=== PATIENT | male | born 1960 | race Caucasian/White ===

== ENCOUNTER → 2021-01-16 09:54 | Outpatient (CLI) | payer OTHER, SELFPAY ==
--- NOTE | 2021-01-16 09:57 | DI.US.S_ITS ---
PROCEDURE: US PERIPH VENOUS LOW EXTREM BI INDICATIONS: Cramping calf. TECHNIQUE: Real-time imaging, as well as color and pulse Doppler interrogation, were performed of the deep veins of both legs from the inguinal ligament to the popliteal fossa. COMPARISON: None. FINDINGS: Right: The common femoral, femoral and popliteal veins are normally compressible, and free of intraluminal thrombus. Color and pulse Doppler demonstrate normal phasic intravascular flow. There is normal augmentation response to distal compression maneuver. Left: The common femoral, femoral and popliteal veins are normally compressible, and free of intraluminal thrombus. Color and pulse Doppler demonstrate normal phasic intravascular flow. There is normal augmentation response to distal compression maneuver. IMPRESSION: Negative for deep venous thrombosis. Dictated by: Jean Pro M.D. on 01/16/2021 at 10:35 Approved by: Jean Pro M.D. on 01/16/2021 at 10:35
[2021-01-16 11:11] LABS: Add Manual Diff / Slide Review NO; Basophils Absolute Auto 0 /uL (0-100); Basophils Percent Auto 0.8 % (0-2); Eosinophils Absolute Auto 300 /uL (0-450); Eosinophils Percent Auto 4.5 % (2-4); Hematocrit 44.4 % (41-53); Hemoglobin 14.9 g/dL (13.5-17.5); Lymphocytes Absolute Auto 1900 /uL (1100-4500); Lymphocytes Percent Auto 32.5 % (25-40); Mean Corpuscular HGB Conc 33.6 % (30-36); Mean Corpuscular Hemoglobin 29.1 PG (26-34); Mean Corpuscular Volume 86.8 fL (80-100); Monocytes Absolute Auto 500 /uL (0-900); Monocytes Percent Auto 7.8 % (3-14); Neutrophils Absolute Auto 3200 /uL (1500-7000); Neutrophils Percent Auto 54.4 % (50-75); Platelet Count 190 X10^3/uL (150-400); Red Blood Cell Count 5.11 X10^6/uL (4.5-5.9); Red Cell Distribution Width 14.3 % (11.6-14.8); White Blood Cell Count 5.9 X10^3/uL (4.5-11.0)
[2021-01-16 11:39] LABS: Erythrocyte Sedimentation Rate 5 MM/HR (0-15)
[2021-01-16 11:50] LABS: Alanine Aminotransferase 29 IU/L (<50); Albumin Globulin Ratio 1.4 (1.0-2.8); Alkaline Phosphatase 75 U/L (38-126); Aspartate Aminotransferase 33 IU/L (17-59); BUN Creatinine Ratio 19.8 (6-22); Bilirubin Total 0.5 mg/dL (0.2-1.3); Blood Urea Nitrogen 16 mg/dL (9-20); C-Reactive Protein Quant 0.9 mg/dL (<1.0); Carbon Dioxide 23 mmol/L (22-32); Chloride 107 mmol/L (98-107); Cholesterol 174 mg/dL (140-199); Estimated Glomerular Filt Rate > 60.0 mL/min (>60); Globulin 2.9 g/dL (1.7-4.1); Glucose 95 mg/dL (80-110); HDL Cholesterol 38 mg/dL (40-60); HEMOLYSIS < 15 (0-50); LDL Cholesterol Calculated 107 mg/dL (<100); Sodium 137 mmol/L (137-145); Total Protein 6.9 g/dL (6.3-8.2); Triglycerides 146 mg/dL (35-150)
[2021-01-16 11:57] LABS: Rheumatoid Factor < 8.6 IU/mL (<12.0)
[2021-01-16 12:04] LABS: Free T3, Triiodothyronine Free 3.47 pg/mL (2.77-5.27); Free T4, Direct Thyroxine 0.85 ng/dL (0.78-2.19); Microalbumin Urine Random < 0.6 mg/dL (0-1.6)
[2021-01-16 12:17] LABS: Thyroid Stimulating Hormone 1.35 uIU/mL (0.47-4.68)
[2021-01-16 12:18] LABS: Prostate Specific Antigen 0.636 ng/mL (0.10-4.00)
[2021-01-19 16:49] LABS: ANA Screen, IFA Negative (.)
== END ==
PROVIDERS: PCP Nurse Practitioner; Referring Provider Nurse Practitioner; Visit Provider Nurse Practitioner
DX: R25.2 Cramp and spasm (principal); G56.92 Unspecified mononeuropathy of left upper limb; G57.92 Unspecified mononeuropathy of left lower limb; I44.7 Left bundle-branch block, unspecified; G51.9 Disorder of facial nerve, unspecified; Z00.00 Encounter for general adult medical examination without abnormal findings; Z79.899 Other long term (current) drug therapy; Z87.898 Personal history of other specified conditions; Z86.59 Personal history of other mental and behavioral disorders
CPT/HCPCS: 36415; 80053; 80061; 82043; 82570; 84153; 84439; 84443; 84481; 85025; 85651; 86038; 86140; 86430; 93970

== ENCOUNTER → 2021-02-25 11:07 | Outpatient (CLI) | payer OTHER, SELFPAY ==
[2021-02-25 11:59] LABS: Add Manual Diff / Slide Review NO; Basophils Absolute Auto 0 /uL (0-100); Basophils Percent Auto 0.5 % (0-2); Eosinophils Absolute Auto 200 /uL (0-450); Eosinophils Percent Auto 2.6 % (2-4); Hematocrit 41.7 % (41-53); Hemoglobin 14.1 g/dL (13.5-17.5); Lymphocytes Absolute Auto 1800 /uL (1100-4500); Lymphocytes Percent Auto 24.6 % (25-40); Mean Corpuscular HGB Conc 33.8 % (30-36); Mean Corpuscular Hemoglobin 29.3 PG (26-34); Mean Corpuscular Volume 86.6 fL (80-100); Monocytes Absolute Auto 600 /uL (0-900); Monocytes Percent Auto 8.9 % (3-14); Neutrophils Absolute Auto 4600 /uL (1500-7000); Neutrophils Percent Auto 63.4 % (50-75); Platelet Count 227 X10^3/uL (150-400); Red Blood Cell Count 4.82 X10^6/uL (4.5-5.9); Red Cell Distribution Width 13.6 % (11.6-14.8); White Blood Cell Count 7.2 X10^3/uL (4.5-11.0)
[2021-02-25 12:09] LABS: Erythrocyte Sedimentation Rate 17 MM/HR (0-15)
[2021-02-25 12:49] LABS: Alanine Aminotransferase 25 IU/L (<50); Albumin Globulin Ratio 1.2 (1.0-2.8); Alkaline Phosphatase 77 U/L (38-126); Aspartate Aminotransferase 34 IU/L (17-59); BUN Creatinine Ratio 20.2 (6-22); Bilirubin Total 0.6 mg/dL (0.2-1.3); Blood Urea Nitrogen 18 mg/dL (9-20); C-Reactive Protein Quant 2.6 mg/dL (<1.0); Calcium 8.9 mg/dL (8.4-10.2); Carbon Dioxide 28 mmol/L (22-32); Chloride 104 mmol/L (98-107); Estimated Glomerular Filt Rate > 60.0 mL/min (>60); Globulin 3.4 g/dL (1.7-4.1); Glucose 85 mg/dL (80-110); HEMOLYSIS < 15 (0-50); Magnesium 2.2 mg/dL (1.6-2.3); Potassium 4.3 mmol/L (3.4-5.1); Sodium 139 mmol/L (137-145); Total Protein 7.4 g/dL (6.3-8.2)
[2021-02-25 12:56] LABS: Rheumatoid Factor < 8.6 IU/mL (<12.0)
[2021-02-27 15:32] LABS: ANA Screen, IFA Negative (.)
== END ==
PROVIDERS: PCP Nurse Practitioner; Referring Provider Nurse Practitioner; Visit Provider Nurse Practitioner
DX: M79.609 Pain in unspecified limb (principal); R52 Pain, unspecified; G51.9 Disorder of facial nerve, unspecified; G56.92 Unspecified mononeuropathy of left upper limb; G57.92 Unspecified mononeuropathy of left lower limb; G62.9 Polyneuropathy, unspecified
CPT/HCPCS: 36415; 80053; 83735; 85025; 85651; 86038; 86140; 86430

== ENCOUNTER 2021-03-02 09:19 | Emergency (ER) | payer OTHER, SELFPAY ==
[2021-03-02 09:50] VITALS: BP 120/83; PULSE 73; RESP 18; TEMP 36.4; O2SAT 99; BMI 28.0
--- NOTE | 2021-03-02 09:58 | DI.US.S_ITS ---
PROCEDURE: US PERIPH VENOUS LOW EXTREM RT INDICATIONS: PAIN/EDEMA TECHNIQUE: Real-time imaging, as well as color and pulse Doppler interrogation, were performed of the lower extremity deep veins from the inguinal ligament to the popliteal fossa. COMPARISON: None. FINDINGS: The common femoral, femoral and popliteal veins are normally compressible, and free of intraluminal thrombus. Color and pulse Doppler demonstrate normal phasic intraluminal flow. There is normal augmentation response to distal compression maneuver. IMPRESSION: No DVT found. 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 Dictated by: George Meza M.D. on 03/02/2021 at 10:52 Approved by: George Meza M.D. on 03/02/2021 at 10:52
[2021-03-02 10:29] LABS: Erythrocyte Sedimentation Rate 28 MM/HR (0-15)
[2021-03-02 10:30] LABS: Alanine Aminotransferase 28 IU/L (<50); Albumin 4.2 g/dL (3.5-5.0); Albumin Globulin Ratio 1.2 (1.0-2.8); Alkaline Phosphatase 80 U/L (38-126); Aspartate Aminotransferase 33 IU/L (17-59); BUN Creatinine Ratio 25.3 (6-22); Bilirubin Total 0.4 mg/dL (0.2-1.3); Blood Urea Nitrogen 20 mg/dL (9-20); Calcium 9.1 mg/dL (8.4-10.2); Carbon Dioxide 22 mmol/L (22-32); Chloride 105 mmol/L (98-107); Estimated Glomerular Filt Rate > 60.0 mL/min (>60); Globulin 3.5 g/dL (1.7-4.1); Glucose 96 mg/dL (80-110); HEMOLYSIS < 15 (0-50); Lactate (Lactic Acid) 0.8 mmol/L (0.7-2.1); Lipase 153 U/L (23-300); Potassium 4.5 mmol/L (3.4-5.1); Sodium 136 mmol/L (137-145); Total Protein 7.7 g/dL (6.3-8.2)
[2021-03-02 10:32] LABS: C-Reactive Protein Quant 4.1 mg/dL (<1.0)
[2021-03-02 10:45] LABS: Procalcitonin 0.08 ng/mL (<0.5)
[2021-03-02 12:01] LABS: Add Manual Diff / Slide Review NO; Basophils Absolute Auto 100 /uL (0-100); Basophils Percent Auto 0.5 % (0-2); Eosinophils Absolute Auto 100 /uL (0-450); Eosinophils Percent Auto 1.1 % (2-4); Hematocrit 43.8 % (41-53); Hemoglobin 14.8 g/dL (13.5-17.5); Lymphocytes Absolute Auto 1900 /uL (1100-4500); Lymphocytes Percent Auto 18.5 % (25-40); Mean Corpuscular HGB Conc 33.8 % (30-36); Mean Corpuscular Hemoglobin 29.3 PG (26-34); Mean Corpuscular Volume 86.6 fL (80-100); Monocytes Absolute Auto 900 /uL (0-900); Monocytes Percent Auto 8.9 % (3-14); Neutrophils Absolute Auto 7300 /uL (1500-7000); Platelet Count 253 X10^3/uL (150-400); Red Blood Cell Count 5.05 X10^6/uL (4.5-5.9); Red Cell Distribution Width 13.5 % (11.6-14.8); White Blood Cell Count 10.3 X10^3/uL (4.5-11.0)
[2021-03-02 12:38] VITALS: BP 117/72; PULSE 67; O2SAT 98
[2021-03-02 13:00] VITALS: BP 114/73; PULSE 69; O2SAT 94
--- NOTE | 2021-03-02 13:20 | ED.EXTPRO ---
HPI - Extremity Problem General Chief complaint: Extremity Problem,Nontraumatic Stated complaint: right leg swelling, heat, pain 3wks Time Seen by Provider: 03/02/21 13:19 Source: patient Mode of arrival: Ambulatory Limitations: no limitations History of Present Illness HPI Narrative: This a 60-year-old male who comes emergency department with complaint of all over body aches and joint pain in his extremities for several weeks. Patient states that his torso and his head did not cause him any issues. He states he has increased pain with flexion. His joints and muscles feel stiff. He states it is very hard to get out of bed in the morning. He believes he had a fever of 100 or 101 couple days ago. He has not had any headache. No vision changes. No cough cold or congestive symptoms. No chest pain or shortness of breath. He has not had any vomiting. No major changes to his bowel movements. He states he has been urinating a little bit more frequently. Has had intermittent GI issues which have been attributed IBS but has never had a colonoscopy. He has had an EGD in the past. He also had some rashes on his torso in the past which have resolved but never had a clear cause. Patient has a history of left bundle branch block. He is on bisoprolol, he is on mirtazapine for sleep and slight depression as well as occasional gabapentin. Patient had knee surgery on the right lower extremity when he was in his 20s. He had a scraping but no other intervention. He notes that his right leg has seemed more swollen in general. He notes that all the joints in his leg seem uncomfortable. He has some pain behind his knee but not in the front of the knee. He has not noticed any skin changes. He has seen his primary care physician who is currently working him up for autoimmune issues and is attempting to get him established with rheumatology but there are no appointments available for the next 5-6 months. Related Data Home Medications Medication Instructions Recorded Confirmed eszopiclone 1 mg tablet See Rx Instructions PO BEDTIME PRN 01/14/21 02/25/21 tab gabapentin 600 mg tablet 600 mg PO BEDTIME tab 01/14/21 02/25/21 Previous Rx's Medication Instructions Recorded bisoprolol fumarate 5 mg tablet 10 mg PO DAILY #180 tab 01/14/21 mirtazapine 15 mg tablet 7.5 mg PO BEDTIME #45 tab 01/14/21 prednisone 20 mg tablet 20 mg PO DAILY #7 tab 03/02/21 Allergies Allergy/AdvReac Type Severity Reaction Status Date / Time No Known Drug Allergies Allergy Unverified 02/25/21 10:23 Review of Systems Review of Systems ROS Unobtainable: All systems reviewed & are unremarkable except as noted in HPI and below Patient History Medical History History of insomnia History of posttraumatic stress disorder (PTSD) LBBB (left bundle branch block) Social History Smoking Status: Never smoker Smoking Status: Never smoker Exam Narrative Exam Narrative: GENERAL: Alert and oriented x three, male in mild distress. HEENT: Head normocephalic, atraumatic, EOMI, pupils reactive, face symmetric, moist mucous membranes NECK: Supple, full range of motion CARDIOVASCULAR: Regular rate and rhythm without murmurs, rubs or gallops. RESPIRATORY: Breath sounds equal bilaterally, no wheezes rales or rhonchi. ABDOMEN: Soft, nontender. Normoactive bowel sounds all 4 quadrants. No guarding or rebound, rigidity, no mass : No CVA tenderness EXTREMITIES: Normal range of motion but patient has discomfort with full range of motion of all his extremity joints particularly in his hands and the distal interphalangeal joints, no clubbing. Patient has mild swelling right comparison the left lower extremity. No appreciable warmth on exam. Patient has some mild tenderness in the posterior/llateral knee but not of the joint itself. There is some fullness of the posterior knee. There is no ballotable effusion. Neurovascularly intact NEUROLOGICAL: Cranial nerves II through XII grossly intact. Moving all extremities SKIN: Warm, dry, no petechiae, no rashes or lesions, no Roy lesions. Initial Vital Signs Initial Vital Signs: Vital Signs Temperature 97.5 F L 03/02/21 09:50 Pulse Rate 73 03/02/21 09:50 Respiratory Rate 18 03/02/21 09:50 Blood Pressure 120/83 03/02/21 09:50 Pulse Oximetry 99 03/02/21 09:50 Course Orders Ordered: ED Orders 03/02/21 13:01 TSH w/ Reflex to FT4 Stat 03/02/21 13:04 Urinalysis and Microscopic Stat Vital Signs Vital signs: Vital Signs - 8 hr 03/02/21 12:38 03/02/21 13:00 03/02/21 13:30 Pulse Rate 67 69 70 Blood Pressure 117/72 114/73 133/81 Pulse Oximetry 98 94 95 MDM - Extremity (Nontraumatic) Lab Data Result diagrams: 03/02/21 10:05 03/02/21 10:05 Labs: Lab Results 03/02/21 03/02/21 03/02/21 Range/Units 10:05 10:05 10:05 WBC 10.3 (4.5-11.0) X10^3/uL RBC 5.05 (4.5-5.9) X10^6/uL Hgb 14.8 (13.5-17.5) g/dL Hct 43.8 (41-53) % MCV 86.6 (80-100) fL MCH 29.3 (26-34) PG MCHC 33.8 (30-36) % RDW 13.5 (11.6-14.8) % Plt Count 253 (150-400) X10^3/uL Neut % (Auto) 71.0 (50-75) % Lymph % (Auto) 18.5 L (25-40) % [place] % (Auto) 8.9 (3-14) % Eos % (Auto) 1.1 L (2-4) % Baso % (Auto) 0.5 (0-2) % Neut # (Auto) 7300 H (1070-2797) /uL Lymph # (Auto) 1900 (3991-3566) /uL [place] # (Auto) 900 (0-900) /uL Eos # (Auto) 100 (0-450) /uL Baso # (Auto) 100 (0-100) /uL ESR (0-15) MM/HR Sodium 136 L (137-145) mmol/L Potassium 4.5 (3.4-5.1) mmol/L Chloride 105 (98-107) mmol/L Carbon Dioxide 22 (22-32) mmol/L BUN 20 (9-20) mg/dL Creatinine 0.79 (0.66-1.25) mg/dL Estimated GFR > 60.0 (>60) mL/min BUN/Creatinine Ratio 25.3 H (6-22) Glucose 96 (80-110) mg/dL Lactate 0.8 (0.7-2.1) mmol/L Calcium 9.1 (8.4-10.2) mg/dL Total Bilirubin 0.4 (0.2-1.3) mg/dL AST 33 (17-59) IU/L ALT 28 (<50) IU/L Alkaline Phosphatase 80 (38-126) U/L C-Reactive Protein (<1.0) mg/dL Total Protein 7.7 (6.3-8.2) g/dL Albumin 4.2 (3.5-5.0) g/dL Globulin 3.5 (1.7-4.1) g/dL Albumin/Globulin Ratio 1.2 (1.0-2.8) Lipase 153 (23-300) U/L Procalcitonin 0.08 (<0.5) ng/mL TSH (0.47-4.68) uIU/mL Urine Color Urine Appearance Urine pH (4.5-8.0) Ur Specific [place] (1.000-1.035) Urine Protein (Negative) Urine Glucose (UA) (Negative) g/dL Urine Ketones (NEGATIVE) Urine Occult Blood (Negative) Urine Nitrate (Negative) Urine Bilirubin (NEGATIVE) Urine Urobilinogen (0.2) E.U./dL Ur Leukocyte Esterase (NEGATIVE) Urine RBC (0-5/HPF) Urine WBC (0-5/HPF) Urine Bacteria (None) Ur Culture Indicated? 03/02/21 03/02/21 03/02/21 Range/Units 10:05 10:05 13:01 WBC (4.5-11.0) X10^3/uL RBC (4.5-5.9) X10^6/uL Hgb (13.5-17.5) g/dL Hct (41-53) % MCV (80-100) fL MCH (26-34) PG MCHC (30-36) % RDW (11.6-14.8) % Plt Count (150-400) X10^3/uL Neut % (Auto) (50-75) % Lymph % (Auto) (25-40) % [place] % (Auto) (3-14) % Eos % (Auto) (2-4) % Baso % (Auto) (0-2) % Neut # (Auto) (9806-9453) /uL Lymph # (Auto) (3938-4902) /uL [place] # (Auto) (0-900) /uL Eos # (Auto) (0-450) /uL Baso # (Auto) (0-100) /uL ESR 28 H (0-15) MM/HR Sodium (137-145) mmol/L Potassium (3.4-5.1) mmol/L Chloride (98-107) mmol/L Carbon Dioxide (22-32) mmol/L BUN (9-20) mg/dL Creatinine (0.66-1.25) mg/dL Estimated GFR (>60) mL/min BUN/Creatinine Ratio (6-22) Glucose (80-110) mg/dL Lactate (0.7-2.1) mmol/L Calcium (8.4-10.2) mg/dL Total Bilirubin (0.2-1.3) mg/dL AST (17-59) IU/L ALT (<50) IU/L Alkaline Phosphatase (38-126) U/L C-Reactive Protein 4.1 H (<1.0) mg/dL Total Protein (6.3-8.2) g/dL Albumin (3.5-5.0) g/dL Globulin (1.7-4.1) g/dL Albumin/Globulin Ratio (1.0-2.8) Lipase (23-300) U/L Procalcitonin (<0.5) ng/mL TSH 1.12 (0.47-4.68) uIU/mL Urine Color Urine Appearance Urine pH (4.5-8.0) Ur Specific [place] (1.000-1.035) Urine Protein (Negative) Urine Glucose (UA) (Negative) g/dL Urine Ketones (NEGATIVE) Urine Occult Blood (Negative) Urine Nitrate (Negative) Urine Bilirubin (NEGATIVE) Urine Urobilinogen (0.2) E.U./dL Ur Leukocyte Esterase (NEGATIVE) Urine RBC (0-5/HPF) Urine WBC (0-5/HPF) Urine Bacteria (None) Ur Culture Indicated? 03/02/21 Range/Units 13:04 WBC (4.5-11.0) X10^3/uL RBC (4.5-5.9) X10^6/uL Hgb (13.5-17.5) g/dL Hct (41-53) % MCV (80-100) fL MCH (26-34) PG MCHC (30-36) % RDW (11.6-14.8) % Plt Count (150-400) X10^3/uL Neut % (Auto) (50-75) % Lymph % (Auto) (25-40) % [place] % (Auto) (3-14) % Eos % (Auto) (2-4) % Baso % (Auto) (0-2) % Neut # (Auto) (4260-9644) /uL Lymph # (Auto) (2467-1726) /uL [place] # (Auto) (0-900) /uL Eos # (Auto) (0-450) /uL Baso # (Auto) (0-100) /uL ESR (0-15) MM/HR Sodium (137-145) mmol/L Potassium (3.4-5.1) mmol/L Chloride (98-107) mmol/L Carbon Dioxide (22-32) mmol/L BUN (9-20) mg/dL Creatinine (0.66-1.25) mg/dL Estimated GFR (>60) mL/min BUN/Creatinine Ratio (6-22) Glucose (80-110) mg/dL Lactate (0.7-2.1) mmol/L Calcium (8.4-10.2) mg/dL Total Bilirubin (0.2-1.3) mg/dL AST (17-59) IU/L ALT (<50) IU/L Alkaline Phosphatase (38-126) U/L C-Reactive Protein (<1.0) mg/dL Total Protein (6.3-8.2) g/dL Albumin (3.5-5.0) g/dL Globulin (1.7-4.1) g/dL Albumin/Globulin Ratio (1.0-2.8) Lipase (23-300) U/L Procalcitonin (<0.5) ng/mL TSH (0.47-4.68) uIU/mL Urine Color Yellow Urine Appearance Clear Urine pH 6.5 (4.5-8.0) Ur Specific [place] <=1.005 (1.000-1.035) Urine Protein Negative (Negative) Urine Glucose (UA) Negative (Negative) g/dL Urine Ketones Negative (NEGATIVE) Urine Occult Blood Negative (Negative) Urine Nitrate Negative (Negative) Urine Bilirubin Negative (NEGATIVE) Urine Urobilinogen 0.2 (0.2) E.U./dL Ur Leukocyte Esterase Negative (NEGATIVE) Urine RBC None seen (0-5/HPF) Urine WBC None seen (0-5/HPF) Urine Bacteria None seen (None) Ur Culture Indicated? Cult not indicated Imaging Data US - DVT: Radiologist's Impression: [address] [id number] ReportSigned Patient: Bart Carter SMR#: [id number]: 1960cct:[id number]/Sex: 60 / MDate of Service: 03/02/21Loc: EDAccession Number: [id number] Procedure: US periph venous low extrem rt Ordering Provider: Nydia Espana D.O. PROCEDURE: US PERIPH VENOUS LOW EXTREM RT INDICATIONS: PAIN/EDEMA TECHNIQUE: Real-time imaging, as well as color and pulse Doppler interrogation, were performed of the lower extremity deep veins from the inguinal ligament to the popliteal fossa. COMPARISON: None. FINDINGS: The common femoral, femoral and popliteal veins are normally compressible, and free of intraluminal thrombus. Color and pulse Doppler demonstrate normal phasic intraluminal flow. There is normal augmentation response to distal compression maneuver. IMPRESSION: No DVT found. 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 Dictated by: George Meza M.D. on 03/02/2021 at 10:52 Approved by: George Meza M.D. on 03/02/2021 at 10:52 [facility] [place] Narrative Medical decision making narrative: This is a 60-year-old male who comes the emergency department with complaint generalized arthralgias. He has appreciated some increased swelling in his right lower extremity in general, he has had some increased pain kind of behind his knee on the lateral side. He thinks he has had some fevers once or twice. He was seen by his primary care and had multiple labs sent to evaluate for autoimmune diseases and is trying to be set up with Rheumatology but this may be 5 or 6 months. On examination patient does not have an obviously septic knee. He does have some fullness in the posterior knee an ultrasound shows Stephenson cyst. His labs are reassuring except for an elevated CRP and ESR, his procalcitonin is negative. With patient has polyarthralgia in multiple extremities my suspicion for septic joint is low based on today's exam. Discharge Plan Departure Patient Disposition: Home Clinical Impression: Polyarthralgia Instructions: DI for Arthralgia Activity Restrictions/Additional Instructions: Your current clinical situation and lab seem to suggest an autoimmune cause of your symptoms but blood cultures were sent today. Your exam today does not make me suspicious for septic arthritis of your joint. 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 Typically we do not intervene unless it has become very large and then orthopedic surgery will sometimes drain them. I would recommend NSAIDs such as ibuprofen up to 600 mg every 6 hours. It may be helpful to try a course of steroids to see if this improves your symptoms. Prescription was sent to [facility] in [place]. Please return for fevers, increasing redness, swelling or pain particularly of 1 joint, a peer having new chest pain, shortness of breath, lightheadedness or passing out, new skin changes or other new or concerning symptoms. Prescriptions: New prednisone 20 mg tablet 20 mg PO DAILY Qty: 7 RF: 0 No Action gabapentin 600 mg tablet 600 mg PO BEDTIME RF: 0 eszopiclone 1 mg tablet See Rx Instructions PO BEDTIME PRNRF: 0 mirtazapine 15 mg tablet 7.5 mg PO BEDTIME Qty: 45 RF: 3 bisoprolol fumarate 5 mg tablet 10 mg PO DAILY Qty: 180 RF: 3 Referrals: Tran Posada ARNP [Primary Care Provider] -
--- NOTE | 2021-03-02 13:29 | PC.NURSE ---
Pt states for awhile now he has been experiencing generalized body and joint aches along with an elevated c-reactive protein. Has been referred to a Rhumatologist but can not get an appointment until next year. Here today because his R leg became swollen, warm, and painful.
[2021-03-02 13:30] VITALS: BP 133/81; PULSE 70; O2SAT 95
[2021-03-02 13:39] LABS: TSH w/ Reflex to FT4 1.12 uIU/mL (0.47-4.68)
[2021-03-02 13:53] LABS: Bacteria Urine None Seen; RBC Urine None Seen (0-5/HPF); WBC Urine None Seen (0-5/HPF)
[2021-03-02 14:00] LABS: Appearance Urine UA CLEAR; Bilirubin Urine UA NEGATIVE (NEGATIVE); Color Urine UA YELLOW; Glucose Urine UA NEGATIVE (Negative); Ketones Urine UA NEGATIVE (NEGATIVE); Leukocyte Esterase Urine UA NEGATIVE (NEGATIVE); Nitrite Urine UA NEGATIVE (Negative); Occult Blood Urine UA NEGATIVE (Negative); Protein Urine UA NEGATIVE (Negative); Specific Gravity Urine UA <=1.005 (1.000-1.035); Urobilinogen Urine UA 0.2 E.U./dL (0.2); pH Urine UA 6.5 (4.5-8.0)
[2021-03-02 14:07] LABS: Culture Indicated Urine Cult Not Indicated
== END 2021-03-02 14:07 | disposition home or self-care (01) ==
PROVIDERS: Emergency Provider Emergency Medicine; PCP Nurse Practitioner
DX: M79.604 Pain in right leg (principal)
CPT/HCPCS: 36415; 80053; 81001; 83605; 83690; 84145; 84443; 85025; 85651; 86140; 87040; 93971; 99284

== ENCOUNTER → 2021-06-12 10:33 | Outpatient (CLI) | payer OTHER, SELFPAY ==
--- NOTE | 2021-06-12 10:37 | DI.RAD.S_ITS ---
PROCEDURE: XR CHEST 2V INDICATIONS: chest pain TECHNIQUE: 2 views of the chest were acquired. COMPARISON: None. FINDINGS: Surgical changes and devices: None. Lungs and pleura: Lungs are clear. No pleural effusions or pneumothorax. Mediastinum: Mediastinal contours are normal. Heart size is normal. Bones and chest wall: No suspicious bony abnormalities. Soft tissues appear unremarkable. IMPRESSION: No acute cardiopulmonary disease. Dictated by: Macey Otero M.D. on 06/12/2021 at 11:55 Approved by: Macey Otero M.D. on 06/12/2021 at 11:55
[2021-06-12 10:52] LABS: Add Manual Diff / Slide Review NO; Basophils Absolute Auto 0 /uL (0-100); Basophils Percent Auto 0.3 % (0-2); Eosinophils Absolute Auto 0 /uL (0-450); Eosinophils Percent Auto 0.2 % (2-4); Hematocrit 46.4 % (41-53); Hemoglobin 15.8 g/dL (13.5-17.5); Lymphocytes Absolute Auto 1200 /uL (1100-4500); Lymphocytes Percent Auto 11.7 % (25-40); Mean Corpuscular HGB Conc 34.2 % (30-36); Mean Corpuscular Hemoglobin 29.6 PG (26-34); Mean Corpuscular Volume 86.5 fL (80-100); Monocytes Absolute Auto 600 /uL (0-900); Monocytes Percent Auto 5.4 % (3-14); Neutrophils Absolute Auto 8500 /uL (1500-7000); Neutrophils Percent Auto 82.4 % (50-75); Platelet Count 197 X10^3/uL (150-400); Red Blood Cell Count 5.36 X10^6/uL (4.5-5.9); Red Cell Distribution Width 15.4 % (11.6-14.8); White Blood Cell Count 10.3 X10^3/uL (4.5-11.0)
[2021-06-12 12:13] LABS: Alanine Aminotransferase 30 IU/L (<50); Albumin 4.3 g/dL (3.5-5.0); Albumin Globulin Ratio 1.8 (1.0-2.8); Alkaline Phosphatase 67 U/L (38-126); Aspartate Aminotransferase 25 IU/L (17-59); BUN Creatinine Ratio 18.6 (6-22); Bilirubin Total 0.5 mg/dL (0.2-1.3); Blood Urea Nitrogen 19 mg/dL (9-20); Calcium 9.1 mg/dL (8.4-10.2); Carbon Dioxide 24 mmol/L (22-32); Chloride 102 mmol/L (98-107); Creatine Kinase 54 U/L (55-170); Estimated Glomerular Filt Rate > 60.0 mL/min (>60); Globulin 2.4 g/dL (1.7-4.1); Glucose 108 mg/dL (80-110); HEMOLYSIS < 15 (0-50); Potassium 4.3 mmol/L (3.4-5.1); Sodium 135 mmol/L (137-145); Total Protein 6.7 g/dL (6.3-8.2)
[2021-06-12 12:17] LABS: Troponin I < 0.012 ng/mL (0.01-0.034)
== END ==
PROVIDERS: PCP Nurse Practitioner; Referring Provider Nurse Practitioner; Visit Provider Nurse Practitioner
DX: R07.9 Chest pain, unspecified (principal)
CPT/HCPCS: 36415; 71046; 80053; 82550; 84484; 85025; 93005; 93010

== ENCOUNTER → 2021-08-26 11:48 | Outpatient (CLI) | payer OTHER, SELFPAY ==
[2021-08-26 13:19] LABS: C-Reactive Protein Quant 2.2 mg/dL (<1.0)
[2021-08-26 14:13] LABS: Erythrocyte Sedimentation Rate 22 MM/HR (0-15)
[2021-08-28 13:17] LABS: ANA Screen, IFA Negative (.)
[2021-08-29 17:02] LABS: Antimyeloperoxidase AB <9.0 U/mL (0.0-9.0); Antiproteinase 3 AB <3.5 U/mL (0.0-3.5); Atypical P-ANCA Titer <1:20 titer (Neg:<1:20); C-ANCA Titer <1:20 titer (Neg:<1:20); P-ANCA Titer <1:20 titer (Neg:<1:20)
== END ==
PROVIDERS: PCP Nurse Practitioner; Referring Provider Nurse Practitioner; Visit Provider Nurse Practitioner
DX: M35.9 Systemic involvement of connective tissue, unspecified (principal)
CPT/HCPCS: 36415; 83520; 85651; 86038; 86140; 86256

== ENCOUNTER → 2021-09-03 15:14 | Outpatient (CLI) | payer OTHER, SELFPAY ==
[2021-09-03 16:12] LABS: Add Manual Diff / Slide Review NO; Basophils Absolute Auto 100 /uL (0-100); Basophils Percent Auto 0.8 % (0-2); Eosinophils Absolute Auto 100 /uL (0-450); Eosinophils Percent Auto 1.4 % (2-4); Hemoglobin 13.5 g/dL (13.5-17.5); Lymphocytes Absolute Auto 1300 /uL (1100-4500); Lymphocytes Percent Auto 16.4 % (25-40); Mean Corpuscular HGB Conc 34.5 % (30-36); Mean Corpuscular Hemoglobin 29.9 PG (26-34); Mean Corpuscular Volume 86.5 fL (80-100); Monocytes Absolute Auto 900 /uL (0-900); Monocytes Percent Auto 10.5 % (3-14); Neutrophils Absolute Auto 5800 /uL (1500-7000); Neutrophils Percent Auto 70.9 % (50-75); Platelet Count 269 X10^3/uL (150-400); Red Cell Distribution Width 13.7 % (11.6-14.8); White Blood Cell Count 8.2 X10^3/uL (4.5-11.0)
[2021-09-03 16:37] LABS: Erythrocyte Sedimentation Rate 37 MM/HR (0-15)
[2021-09-03 18:05] LABS: Alanine Aminotransferase 28 IU/L (<50); Albumin 3.8 g/dL (3.5-5.0); Albumin Globulin Ratio 1.4 (1.0-2.8); Alkaline Phosphatase 68 U/L (38-126); Aspartate Aminotransferase 30 IU/L (17-59); Bilirubin Total 0.4 mg/dL (0.2-1.3); Bilirubin Unconjugated 0.4 mg/dL (0.0-1.1); C-Reactive Protein Quant 5.6 mg/dL (<1.0); Carbon Dioxide 28 mmol/L (22-32); Chloride 103 mmol/L (98-107); Globulin 2.7 g/dL (1.7-4.1); HEMOLYSIS < 15 (0-50); Potassium 4.3 mmol/L (3.4-5.1); Sodium 138 mmol/L (137-145); Total Protein 6.5 g/dL (6.3-8.2); Uric Acid 5.8 mg/dL (3.5-8.5)
[2021-09-03 18:40] LABS: Rheumatoid Factor < 8.6 IU/mL (<12.0)
[2021-09-04 04:44] LABS: Complement C3 176 mg/dL (82-167)
[2021-09-05 16:53] LABS: Angiotensin Converting Enzyme 57 U/L (14-82)
[2021-09-06 12:18] LABS: Aldolase 6.5 U/L (3.3-10.3)
[2021-09-07 12:36] LABS: Antimyeloperoxidase AB <9.0 U/mL (0.0-9.0); Antiproteinase 3 AB <3.5 U/mL (0.0-3.5); Atypical P-ANCA Titer <1:20 titer (Neg:<1:20); C-ANCA Titer <1:20 titer (Neg:<1:20); P-ANCA Titer <1:20 titer (Neg:<1:20)
[2021-09-07 19:55] LABS: CCP Antibodies IgG/IgA 12 units (0-19)
[2021-09-08 00:41] LABS: CK-BB 0 % (0); CK-MB 0 % (0-3); CK-MM 100 % (97-100); Macro Type 1 0 % (Not Observed); Macro Type 2 0 % (Not Observed)
[2021-09-08 01:07] LABS: Complement Total CH50 > 60 U/mL (>41)
[2021-09-15 13:37] LABS: HLA B27 Negative (.)
== END ==
PROVIDERS: PCP Nurse Practitioner; Referring Provider Nurse Practitioner; Visit Provider Nurse Practitioner
DX: G56.92 Unspecified mononeuropathy of left upper limb (principal); G57.92 Unspecified mononeuropathy of left lower limb; I44.7 Left bundle-branch block, unspecified; L98.9 Disorder of the skin and subcutaneous tissue, unspecified; M35.9 Systemic involvement of connective tissue, unspecified; M79.10 Myalgia, unspecified site; R11.0 Nausea; R19.7 Diarrhea, unspecified; R53.83 Other fatigue; G51.9 Disorder of facial nerve, unspecified; R53.1 Weakness
CPT/HCPCS: 36415; 80051; 80076; 81374; 82085; 82164; 82550; 82553; 83520; 84550; 85025; 85651; 86140; 86160; 86162; 86200; 86256; 86430

== ENCOUNTER → 2021-09-08 06:46 | Outpatient (CLI) | payer OTHER, SELFPAY ==
--- NOTE | 2021-09-08 06:49 | DI.MRI.S_ITS ---
PROCEDURE: MR HAND RT WO CON INDICATIONS: Worsening pain in right hand and wrist TECHNIQUE: Noncontrast coronal T1 spin echo and T2 fast spin echo with fat saturation, axial proton density fast spin echo and T2 fast spin echo with fat saturation, sagittal T1 spin echo and STIR through the hand and fingers. COMPARISON: None. FINDINGS: Image quality: Excellent. Bones: The bones are normally aligned. No acute trabecular bone injury or osteitis. Mild subchondral cystic changes are seen at the 1st interphalangeal joint. Tiny focus of cortical irregularity at the 2nd metacarpal head, which does not meet criteria for erosion and may be degenerative. Joint spaces are relatively preserved in the hand. Minimal degenerative spurring is seen at the 1st carpometacarpal joint and the 1st metacarpophalangeal joint. Soft tissues: Mild T2-hyperintense signal is seen diffusely within the intrinsic hand muscles. . The muscles are normal in bulk. There is also subcutaneous soft tissue edema in the wrist and hand, most prominent at the dorsal ulnar aspect of the hand. No intramuscular masses identified. A small amount of fluid is seen extending along the flexor tendons at the level of the metacarpals that may be related to the adjacent muscular edema and/or tenosynovitis. The visualized portions of the extensor tendons are grossly intact. An 8 x 3 by 8 mm ganglion cyst is seen at the volar aspect of the 3rd metacarpophalangeal joint. IMPRESSION: 1. Nonspecific muscular edema throughout the hand, which may be secondary to myositis versus less likely muscle strains or early denervation changes. Nonspecific soft tissue edema is also seen in the hand that is worst dorsally. 2. Small amount of fluid within the tendon sheaths of the flexor tendons throughout the hand at the level of the metacarpals, which may indicate tenosynovitis. 3. No acute osseous erosion or osteitis. No significant ligament injury or subluxation. 4. 0.8 cm ganglion cyst volar to the 3rd metacarpophalangeal joint. Dictated by: Adriano Lindsay M.D. on 09/08/2021 at 9:26 Approved by: Adriano Lindsay M.D. on 09/08/2021 at 9:43
--- NOTE | 2021-09-08 06:49 | DI.MRI.S_ITS ---
PROCEDURE: MR KNEE RT WO CON INDICATIONS: Worsening pain in knee TECHNIQUE: Noncontrast sagittal PD fast spin echo and T2 fast spin echo with fat saturation, sagittal 3-D FLASH with fat saturation; coronal T1 spin echo and PD fast spin echo with fat saturation, and axial PD fast spin echo with fat saturation through the knee. COMPARISON: None. FINDINGS: Image quality: Excellent. Menisci: There is a horizontal oblique tear of the body and posterior horn of the medial meniscus extending to the mid to inner third of the tibial articular surface. Additionally, there is shallow radial oriented tear at the body of the medial meniscus that does not extend through the peripheral rim of meniscal tissue. There is no significant meniscal extrusion. The lateral meniscus is intact. Cruciate ligaments: The anterior and posterior cruciate ligaments appear intact. Medial structures: The medial collateral ligament appears intact. The semimembranosus tendon insertions and meniscocapsular junction appear intact. Visualized portions of the pes anserinus tendons appear normal. No abnormal bursal fluid. Lateral structures: The lateral collateral ligament, long and short heads of the biceps femoris tendon appear intact. The popliteus tendon appears intact. No signs of posterolateral corner injury. Iliotibial band appears normal. Anterior structures: The quadriceps and patellar tendons appear intact. Patellar alignment is normal. No femoral trochlear dysplasia or ventral trochlear prominence. No edema in the infrapatellar fat pad. Bones and cartilage: No bone marrow contusions or fractures. The cartilage of the medial and lateral femorotibial compartments, as well as the patellofemoral compartment, appears normal in thickness for age without a focal high-grade defect. Joint space: There is a moderate joint effusion. A small medial popliteal cyst is seen with mild surrounding edema that may indicate prior cyst rupture. Trace fluid is seen tracking along the popliteus tendon sheath. There is a small amount of subcutaneous pre patellar and pretibial soft tissue edema. Nonspecific soft tissue edema is also seen within the popliteus muscle and the included anterior tibialis muscle and also likely subtly within the proximal gastrocnemius muscle. IMPRESSION: 1. Complex tearing of the medial meniscus with a horizontal oblique component involving the posterior horn and body and a shallow radial component at the meniscal body. 2. Intact cruciate and collateral ligaments. No acute trabecular bone injury. No focal osseous erosion. 3. Moderate joint effusion. No significant synovial hypertrophy is seen. 4. Small medial popliteal cyst with surrounding edema that may indicate prior cyst rupture. 5. Mild soft tissue edema is seen within the visualized portions of the popliteus and anterior tibialis muscles and likely within the proximal gastrocnemius muscle, which is nonspecific but may be related to myositis or muscle strain. Nonspecific subcutaneous soft tissue edema is also seen in the prepatellar and pretibial soft tissues. Dictated by: Adriano Lindsay M.D. on 09/08/2021 at 9:07 Approved by: Adriano Lindsay M.D. on 09/08/2021 at 9:21
== END ==
PROVIDERS: PCP Nurse Practitioner; Referring Provider Nurse Practitioner; Visit Provider Nurse Practitioner
DX: S83.231A Complex tear of medial meniscus, current injury, right knee, initial encounter (principal); M25.461 Effusion, right knee; M71.21 Synovial cyst of popliteal space [Baker], right knee; M79.89 Other specified soft tissue disorders; M67.441 Ganglion, right hand; R60.0 Localized edema; M79.641 Pain in right hand; M25.561 Pain in right knee; M35.9 Systemic involvement of connective tissue, unspecified
CPT/HCPCS: 73218; 73721

== ENCOUNTER → 2021-12-18 11:24 | Outpatient (CLI) | payer OTHER, SELFPAY ==
--- NOTE | 2021-12-18 11:26 | DI.RAD.S_ITS ---
PROCEDURE: XR CHEST 2V INDICATIONS: cough TECHNIQUE: 2 views of the chest were acquired. COMPARISON: [facility], CR, XR CHEST 2V, 06/12/2021, 12:03. FINDINGS: Surgical changes and devices: Cholecystectomy clips. Lungs and pleura: Lungs are clear. No pleural effusions or pneumothorax. Mediastinum: Mediastinal contours are normal. Heart size is normal. Bones and chest wall: No suspicious bony abnormalities. Soft tissues appear unremarkable. IMPRESSION: No acute cardiopulmonary abnormality. Dictated by: Yemi Tomas M.D. on 12/18/2021 at 11:50 Approved by: Yemi Tomas M.D. on 12/18/2021 at 11:52
== END ==
PROVIDERS: PCP Nurse Practitioner; Referring Provider Nurse Practitioner Family; Visit Provider Nurse Practitioner Family
DX: R05.9 Cough, unspecified (principal)
CPT/HCPCS: 71046

== ENCOUNTER → 2022-01-22 11:36 | Outpatient (CLI) | payer OTHER, SELFPAY ==
[2022-01-22 12:46] LABS: Hemoglobin A1C% w Est Avg Glu 5.8 % (4.0-6.0)
== END ==
PROVIDERS: PCP Nurse Practitioner; Referring Provider Nurse Practitioner; Visit Provider Nurse Practitioner
DX: Z79.899 Other long term (current) drug therapy (principal); Z79.52 Long term (current) use of systemic steroids
CPT/HCPCS: 36415; 83036

== ENCOUNTER → 2022-10-15 12:00 | Outpatient (CLI) | payer OTHER, SELFPAY ==
--- NOTE | 2022-10-15 12:02 | DI.CT.S_ITS ---
PROCEDURE: CT CHEST ABDOMEN W CON INDICATIONS: chest and abdominal pain TECHNIQUE: After the administration of intravenous contrast, 5 mm thick sections acquired from the lung apices to the iliac crests. 5 mm coronal and sagittal reformats were performed, with additional 7 mm coronal MIP reformats through the lungs. For radiation dose reduction, the following was used: automated exposure control, adjustment of mA and/or kV according to patient size. COMPARISON: [facility], CR, XR CHEST 2V, 06/12/2021, 12:03. FINDINGS: Image quality: Excellent. CHEST: Lungs and pleura: No acute airspace opacities. There is minimal linear scarring at each lung base. No pleural effusions or pneumothorax. Central and peripheral airways appear patent and normal in caliber. Mediastinum: Heart size is normal. No pericardial effusion. No mediastinal or hilar adenopathy by size criteria. Thoracic aorta and central pulmonary arteries are normal in size. Esophagus is normal in caliber. No hiatal hernia. Chest wall: No axillary or supraclavicular adenopathy by size criteria. Thyroid gland appears normal where well seen . ABDOMEN: Solid organs: Liver is normal in size and enhancement. Gallbladder has been previously resected . Biliary system is non dilated. Pancreas enhances normally. Spleen is normal in size and enhancement. No adrenal nodules. Kidneys demonstrate normal size and enhancement, without hydronephrosis. Peritoneum and bowel: Bowel loops demonstrate normal wall thickness and caliber. No free fluid or air. Nodes and vessels: No retroperitoneal or mesenteric adenopathy by size criteria. Aorta and inferior vena cava are normal in size. Bones: No suspicious bony lesions. No vertebral body compression fractures. Miscellaneous: No ventral hernias. IMPRESSION: Prior cholecystectomy. Source of current sensation of pressure in the lower left chest and upper abdomen is not found. Dictated by: George Meza M.D. on 10/15/2022 at 15:43 Approved by: George Meza M.D. on 10/15/2022 at 15:44
[2022-10-15 12:28] LABS: BUN Creatinine Ratio 18.2 (6-22); Blood Urea Nitrogen 16 mg/dL (9-20); Calcium 8.6 mg/dL (8.4-10.2); Carbon Dioxide 26 mmol/L (22-32); Chloride 103 mmol/L (98-107); Estimated Glomerular Filt Rate > 60 mL/min (>60); Glucose 85 mg/dL (80-110); HEMOLYSIS < 15 (0-50); Potassium 4.1 mmol/L (3.4-5.1); Sodium 137 mmol/L (137-145)
== END ==
PROVIDERS: PCP Nurse Practitioner; Referring Provider Nurse Practitioner; Visit Provider Nurse Practitioner
DX: R10.13 Epigastric pain (principal); R07.9 Chest pain, unspecified; K44.9 Diaphragmatic hernia without obstruction or gangrene; I44.7 Left bundle-branch block, unspecified; M35.9 Systemic involvement of connective tissue, unspecified; Z90.49 Acquired absence of other specified parts of digestive tract
CPT/HCPCS: 71260; 74160; 80048; Q9967

== ENCOUNTER → 2023-05-27 11:56 | Outpatient (CLI) | payer OTHER, SELFPAY | PROVIDERS: PCP Nurse Practitioner; Referring Provider Internal Medicine Cardiovascular Disease; Visit Provider Internal Medicine Cardiovascular Disease | DX: R06.02 Shortness of breath (principal); J98.8 Other specified respiratory disorders | CPT/HCPCS: 94060; 94726; 94729 ==

== ENCOUNTER → 2023-05-27 14:56 | Outpatient (CLI) | payer OTHER, SELFPAY ==
--- NOTE | 2023-05-27 | DI.ECHO.S_ITS ---
[facility]---------+ [facility] +---------+ : : [address] : : : : [id number] : : : : Phone: [phone]---------+ Echocardiogram Report + + :Name: KATERYNA NORRIS Study Date: 05/27/2023 Height: 72 in : [id number] ReadingLocation: Weight: 204 lb : : Gender: Male BSA: 2.1 m2 : :: 1960 Age: 62 yrs BP: 117/67 mmHg: :Reason For Study: LBBB : : Performed By: Zuleima Haywood : :Referring: BRITTANY PACHECO : + + Interpretation Summary The left ventricle is normal in size and wall thickness. The left ventricular ejection fraction is normal. Left ventricular ejection fraction is estimated to be 55 +/- 5%. There has been no significant change in LV EF since the previous exam. The right ventricle is normal in size and function. There is mild tricuspid regurgitation. Compared to the prior echo exam, there has been no change in TR severity. The right ventricular systolic pressure is estimated to be at least 25 mmHg based on an estimated right atrial pressure of 3 mm Hg. Procedure: A two-dimensional transthoracic echocardiogram with color flow and Doppler was performed. The study quality was technically adequate. Comparison is made with the echocardiogram of 09/25/2021. The patient was in normal sinus rhythm during the exam. The patient had a bundle branch block rhythm during the exam. Left Ventricle: The left ventricle is normal in size and wall thickness. There is no thrombus. The left ventricular ejection fraction is normal. Left ventricular ejection fraction is estimated to be 55 +/- 5%. There has been no significant change since the previous exam. Septal motion is consistent with conduction abnormality. Diastolic parameters suggest a relaxation abnormality of the left ventricle, consistent with probable normal filling pressures. Right Ventricle: The right ventricle is normal in size and function. Atria: The left atrial size is normal. There has been no significant change since the previous study. The right atrium is mildly dilated. There is no Doppler evidence for an interatrial shunt. Mitral Valve: The mitral valve is normal in structure and function. There is trace mitral regurgitation. Aortic Valve: The aortic valve is normal in structure and function. The aortic valve is trileaflet. There is no aortic valve stenosis. No aortic regurgitation is present. Tricuspid Valve: The tricuspid valve is normal in structure and function. The right ventricular systolic pressure is estimated to be at least 25 mmHg based on an estimated right atrial pressure of 3 mm Hg. There is mild tricuspid regurgitation. Compared to the prior echo exam, there has been no change in TR severity. Pulmonic Valve: The pulmonic valve is not well seen, but is grossly normal. There is a trace or physiologic amount of pulmonic regurgitation. Great Vessels: The aortic root is normal size. The ascending aorta is normal in size. The aortic arch is normal in size. The pulmonary artery is normal size. The IVC is of normal diameter and collapses greater than 50% with a sniff. This suggests a low right atrial pressure of 3 mm Hg. Pericardium/ Pleura There is no pericardial effusion. There is no pleural effusion. MMode/2D Measurements & Calculations LVIDd: 4.7 cm LVOT diam: 2.4 cm LVIDs: 3.1 cm Ao root diam: 3.9 cm FS: 34.9 % asc Aorta Diam: 3.4 cm IVSd: 0.84 cm Ao Arch Diam (Prox Trans): 2.8 cm LVPWd: 0.84 cm LV french. diameter/BSA (cm/m^2): 2.2 LV sys. diameter/BSA (cm/m^2): 1.4 LA A2 area: 18.2 cm2 RA long axis: 4.9 cm LA A4 area: 16.5 cm2 RA area: 20.7 cm2 LA length (vol): 5.0 cm RA vol: 73.9 ml LA vol: 51.4 ml RA : 34.4 ml/m2 LA vol index: 23.9 ml/m2 IVC diam: 1.5 cm RVD1 (basal): 4.8 cm TAPSE: 2.1 cm Doppler Measurements & Calculations Ao V2 max: 102.8 cm/sec LVOT Max Rodriguez: 86.2 cm/sec Ao V2 mean: 73.5 cm/sec LV V1 max P.0 mmHg Ao max P.2 mmHg LV V1 VTI: 15.4 cm Ao mean P.4 mmHg JOSÉ MIGUEL(I,D): 4.7 cm2 Ao V2 VTI: 15.1 cm JOSÉ MIGUEL(V,D): 3.8 cm2 sev ratio: 1.0 JOSÉ MIGUEL indexed to BSA (cm^2/m^2): 2.2 MV E max rodriguez: 38.0 cm/sec TR max rodriguez: 235.0 cm/sec MV A max rodriguez: 56.3 cm/sec TR max P.1 mmHg MV E/A: 0.67 Med Peak E' Rodriguez: 4.6 cm/sec E/E' med: 8.3 Lat Peak E' Rodriguez: 6.3 cm/sec E/E' lat: 6.0 E/e' average: 7.2 MV P1/2t: 93.5 msec MV P1/2t max rodriguez: 38.4 cm/sec SV(LVOT): 70.4 ml MVA(P1/2t): 2.4 cm2 Reading Physician:05:39 PM
== END ==
PROVIDERS: PCP Nurse Practitioner; Referring Provider Internal Medicine Cardiovascular Disease; Visit Provider Internal Medicine Cardiovascular Disease
DX: I07.1 Rheumatic tricuspid insufficiency (principal); I44.7 Left bundle-branch block, unspecified; R07.89 Other chest pain; I42.8 Other cardiomyopathies; R06.02 Shortness of breath; J98.8 Other specified respiratory disorders
CPT/HCPCS: 93306; 94060; 94726; 94729

== ENCOUNTER → 2023-08-19 08:59 | Outpatient (CLI) | payer OTHER, SELFPAY ==
[2023-08-19 10:31] LABS: Cholesterol 168 mg/dL (140-199); HDL Cholesterol 32 mg/dL (40-60); LDL Cholesterol Calculated 92 mg/dL (<100); Triglycerides 221 mg/dL (35-150)
[2023-08-19 10:42] LABS: NT-proBNP (BNP-Adult 18+) < 20 pg/mL (<125)
== END ==
PROVIDERS: PCP Nurse Practitioner; Referring Provider Internal Medicine Cardiovascular Disease; Visit Provider Internal Medicine Cardiovascular Disease
DX: R06.02 Shortness of breath (principal); E78.5 Hyperlipidemia, unspecified
CPT/HCPCS: 36415; 80061; 83880

== ENCOUNTER → 2023-12-16 08:59 | Outpatient (CLI) | payer OTHER, SELFPAY ==
[2023-12-16 10:19] LABS: Add Manual Diff / Slide Review NO; Basophils Absolute Auto 0 /uL (0-100); Basophils Percent Auto 0.6 % (0-2); Eosinophils Absolute Auto 100 /uL (0-450); Eosinophils Percent Auto 1.6 % (2-4); Hematocrit 44.9 % (41-53); Hemoglobin 15.2 g/dL (13.5-17.5); Lymphocytes Absolute Auto 1800 /uL (1100-4500); Lymphocytes Percent Auto 29.9 % (25-40); Mean Corpuscular HGB Conc 33.9 % (30-36); Mean Corpuscular Hemoglobin 29.6 PG (26-34); Mean Corpuscular Volume 87.3 fL (80-100); Monocytes Absolute Auto 400 /uL (0-900); Neutrophils Absolute Auto 3700 /uL (1500-7000); Neutrophils Percent Auto 60.9 % (50-75); Platelet Count 183 X10^3/uL (150-400); Red Blood Cell Count 5.14 X10^6/uL (4.5-5.9); Red Cell Distribution Width 14.2 % (11.6-14.8); White Blood Cell Count 6.1 X10^3/uL (4.5-11.0)
[2023-12-16 14:22] LABS: Hemoglobin A1C% w Est Avg Glu 5.5 % (4.0-6.0)
[2023-12-16 16:00] LABS: Alanine Aminotransferase 23 IU/L (<50); Albumin 4.4 g/dL (3.5-5.0); Albumin Globulin Ratio 1.8 (1.0-2.8); Alkaline Phosphatase 83 U/L (38-126); Aspartate Aminotransferase 33 IU/L (17-59); Bilirubin Total 0.6 mg/dL (0.2-1.3); Blood Urea Nitrogen 18 mg/dL (9-20); Calcium 8.6 mg/dL (8.4-10.2); Carbon Dioxide 23 mmol/L (22-32); Chloride 107 mmol/L (98-107); Cholesterol 174 mg/dL (140-199); Estimated Glomerular Filt Rate > 60 mL/min (>60); Globulin 2.5 g/dL (1.7-4.1); Glucose 88 mg/dL (80-110); HDL Cholesterol 39 mg/dL (40-60); HEMOLYSIS < 15 (0-50); LDL Cholesterol Calculated 93 mg/dL (<100); Sodium 138 mmol/L (137-145); Total Protein 6.9 g/dL (6.3-8.2); Triglycerides 209 mg/dL (35-150)
[2023-12-16 16:15] LABS: Thyroid Stimulating Hormone 1.49 uIU/mL (0.47-4.68)
[2023-12-16 16:30] LABS: Microalbumin Urine Random < 0.6 mg/dL (0-1.6)
[2023-12-16 17:20] LABS: Free T3, Triiodothyronine Free 5.69 pg/mL (2.77-5.27); Free T4, Direct Thyroxine 0.86 ng/dL (0.78-2.19)
[2023-12-23 16:36] LABS: Percent Free Testosterone 2.13 % (1.50-4.20); Testosterone Free 7.68 ng/dL (5.00-21.00); Testosterone Total 360.7 ng/dL (264.0-916.0)
== END ==
PROVIDERS: PCP Nurse Practitioner; Referring Provider Nurse Practitioner; Visit Provider Nurse Practitioner
DX: Z00.00 Encounter for general adult medical examination without abnormal findings (principal)
CPT/HCPCS: 36415; 80053; 80061; 82043; 82570; 83036; 84402; 84403; 84439; 84443; 84481; 85025

== ENCOUNTER → 2024-01-10 08:11 | Outpatient (CLI) | payer OTHER, SELFPAY ==
--- NOTE | 2024-01-10 08:13 | DI.RAD.S_ITS ---
PROCEDURE: XR LUMBAR SPINE 6V W BENDING INDICATIONS: lumbar pain TECHNIQUE: Seven views of the lumbar spine acquired, including flexion and extension views. COMPARISON: None. FINDINGS: Bones: 5 nonrib-bearing vertebrae are present. There is normal bony alignment. No vertebral body compression fractures. No suspicious bony lesions. Multilevel marginal osteophytes. Moderate disc height loss at L5-S1 and L1-2. Mild disc height loss at remaining levels. Facet arthrosis of L4 through S1. Soft tissues: Overlying bowel gas pattern is normal. No suspicious soft tissue calcifications. Cholecystectomy clips Flexion/extension: There is normal range of motion, with preserved normal alignment. IMPRESSION: Mild to moderate, multilevel degenerative disc disease and lower lumbar facet arthrosis. No abnormal motion with flexion or extension. Dictated by: Ata Wilson M.D. on 01/10/2024 at 9:13 Approved by: Ata Wilson M.D. on 01/10/2024 at 9:14
[2024-01-10 11:04] LABS: Prostate Specific Antigen 1.11 ng/mL (0.10-4.00)
[2024-01-11 23:08] LABS: Thyroid Peroxidase Antibodies 17 IU/mL (0-34)
== END ==
PROVIDERS: PCP Nurse Practitioner; Referring Provider Nurse Practitioner; Visit Provider Nurse Practitioner
DX: M51.36 Other intervertebral disc degeneration, lumbar region (principal); M51.37 Other intervertebral disc degeneration, lumbosacral region; M47.816 Spondylosis without myelopathy or radiculopathy, lumbar region; M47.817 Spondylosis without myelopathy or radiculopathy, lumbosacral region; M54.50 Low back pain, unspecified; Z00.00 Encounter for general adult medical examination without abnormal findings; F32.9 Major depressive disorder, single episode, unspecified; F41.9 Anxiety disorder, unspecified; R51.9 Headache, unspecified; D89.89 Other specified disorders involving the immune mechanism, not elsewhere classified; E06.3 Autoimmune thyroiditis; G89.29 Other chronic pain
CPT/HCPCS: 36415; 72114; 84153; 86376

== ENCOUNTER → 2025-06-26 15:00 | Outpatient (CLI) | payer OTHER, SELFPAY ==
--- NOTE | 2025-06-26 15:01 | DI.US.S_ITS ---
PROCEDURE: US SCROTUM INDICATIONS: right testicular pain TECHNIQUE: Real-time scanning was performed of the scrotum and testicles, with image documentation. Color and pulse Doppler interrogation was performed of both testicles. COMPARISON: None. FINDINGS: Right: Testicle is normal in size, and homogenous in echotexture. Epididymis is normal in overall size and morphology. No hydrocele. Varicoceles present. Overlying scrotal skin is normal in thickness. Left: Testicle is normal in size, and homogeneous in echotexture. Epididymis is normal in overall size and morphology. No hydrocele or varicoceles. Overlying scrotal skin is normal in thickness. Left epididymal 3 mm cyst. Doppler: Color and pulse Doppler demonstrate normal and symmetric arterial flow in both testicles. IMPRESSION: Right varicoceles corresponding to area of clinical concern. Please note isolated right varicocele can sometimes be associated with an upstream pelvic or abdominal obstructing lesion Dictated by: Kavon Saha M.D. on 06/26/2025 at 15:38 Approved by: Kavon Saha M.D. on 06/26/2025 at 15:40
[2025-06-26 17:19] LABS: Urine N gonorrhoeae NOT DETECTED
[2025-06-26 17:24] LABS: Urine Chlamydia NOT DETECTED
== END ==
PROVIDERS: PCP Nurse Practitioner Family; Referring Provider Physician Assistant; Visit Provider Physician Assistant
DX: I86.1 Scrotal varices (principal); N50.811 Right testicular pain
CPT/HCPCS: 76870; 87491; 87591; 93975

== ENCOUNTER → 2025-07-05 08:32 | Outpatient (CLI) | payer OTHER, SELFPAY ==
--- NOTE | 2025-07-05 08:34 | DI.CT.S_ITS ---
PROCEDURE: CT ABDOMEN PELVIS W CON INDICATIONS: sharp groin/testicle pain TECHNIQUE: After the administration of intravenous contrast, axial sections acquired from the lung bases to the pubic symphysis. Coronal and sagittal reformats were performed. For radiation dose reduction, the following was used: automated exposure control, adjustment of mA and/or kV according to patient size. COMPARISON: [facility], CT, CT CHEST ABDOMEN W CON, 10/15/2022, 14:02. [facility], US, US SCROTUM, 06/26/2025, 15:12. FINDINGS: Image quality: Diagnostic. Lower Chest: No significant findings. ABDOMEN: Liver: No solid mass. Mild hepatic steatosis. Gallbladder: Surgically absent. Biliary ducts: Appropriate biliary tree caliber post cholecystectomy. Pancreas: Normal size and morphology without visible ductal dilatation or inflammation. Spleen: Size is within normal limits. Adrenal Glands: No adrenal nodules. Kidneys and Ureters: Symmetric enhancement. No nephrolithiasis or hydronephrosis. No visible mass or cyst requiring follow up. No hydroureter. Stomach and Bowel: Stomach and small bowel loops are normal caliber. Normal appendix. Diverticulosis throughout the descending and sigmoid colon. The remainder of the colon is unremarkable without focal wall thickening or surrounding inflammation. Peritoneum: No free fluid, fluid collections, free air, or significant intraperitoneal fat stranding. Ventral Wall: No significant ventral hernia. Abdominal Nodes: No retroperitoneal or mesenteric adenopathy by size criteria. Vessels: The right gonadal vein is well seen and normal caliber. No adjacent mass or inflammation. The abdominal aorta, IVC, and portal vein are of normal caliber. PELVIS: Pelvic Organs: Minimal prostatomegaly. No suspicious pelvic mass. Bladder: No stones or wall thickening. Pelvic Nodes: No enlarged lymph nodes. Miscellaneous: No inguinal hernias are seen. Pelvic vasculature appears symmetric and normal size. No varicosities are seen. Bones: No aggressive osseous abnormality. Degenerative disc change at L5-S1. IMPRESSION: No evidence of suspicious mass or vascular abnormalities to cause right varicocele. Incidental findings as above. Dictated by: Amanda Dasilva M.D. on 07/05/2025 at 10:15 Approved by: Amanda Dasilva M.D. on 07/05/2025 at 10:23
[2025-07-05 09:08] LABS: Estimated Glomerular Filt Rate > 60 mL/min (>60)
== END ==
PROVIDERS: PCP Nurse Practitioner Family; Referring Provider Nurse Practitioner Family; Visit Provider Physician Assistant
DX: I86.1 Scrotal varices (principal); R10.30 Lower abdominal pain, unspecified; K76.0 Fatty (change of) liver, not elsewhere classified; K57.30 Diverticulosis of large intestine without perforation or abscess without bleeding; M47.817 Spondylosis without myelopathy or radiculopathy, lumbosacral region; Z90.49 Acquired absence of other specified parts of digestive tract
CPT/HCPCS: 36415; 74177; 82565; Q9967